=== PATIENT | female | born 1960 | race Caucasian/White ===

== ENCOUNTER 2020-03-01 03:31 | Inpatient (IN) | payer BC ==
[2020-03-01] VITALS (9 sets, daily range): BP systolic 107–122; BP diastolic 63–80
[~2020-03-01] VITALS: Ht 180.3 cm; Wt 103.4 kg
[2020-03-01] MEDS ORDERED: KETOROLAC TROMETHAMINE 30 MG/ML VIAL IV STA (03:33)
[2020-03-01] MEDS ORDERED: ONDANSETRON HCL INJ 2MG/ML 2ML 2 MG/ML VIAL IV STA (03:33)
--- NOTE | 2020-03-01 03:45 | Emergency Department Note ---
History of Present Illnes History of Present Illness Chief Complaint: Flank Pain History of Present Illness This is a 59 year old female PRESENTS TO THE ER C/O LT FLANK PAIN RADIATING TO LLQ WITH NAUSEA ONSET YESTERDAY AROUND 1500; PT STATES PAIN RESIDED AND BEGAN EXPERIENCING PAIN THIS AM; PT ALSO REPORTS BURNING WITH URINATION AND HEMATURIA; PT DENIES FEVER/CHILL, VOMITTING OR DIARRHEA; LT CVA TENDERNESS NOTED; PT APPEARS UNCOMFORTABLE; . PT IS ASKING FOR MORPHINE BY NAME IN TRIAGE. Historian: Patient Arrival Mode: Car Intelligence Operations Required: No Onset (how long ago): hour(s) (12) Location: LEFT FLANK Quality: PAIN Radiation: Reports abdomen (LLQ) Severity: moderate Onset quality: sudden Duration (how long): hour(s) (12) Timing of current episode: intermittent Progression: worsening Chronicity: new Context: Denies recent illness, Denies recent surgery, Denies trauma/injury Relieving factors: none Exacerbating factors: none Associated symptoms: Reports other (DYSURIA, BLOOD IN URINE) Past Medical/Family History Physician Review I have reviewed the patient's past medical and family history. Any updates have been documented here. 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 Social History Smoking Cessation: Never Smoker Alcohol Use: None Any Illegal Drug Use: No Family History Family history of heart diseas: No Review of Systems Review of Systems Constitutional: Reports no symptoms EENTM: Reports no symptoms Cardiovascular: Reports no symptoms Respiratory: Reports no symptoms Gastrointestinal: Reports no symptoms Genitourinary: Reports as per HPI Musculoskeletal: Reports no symptoms Integumentary: Reports no symptoms Neurological: Reports no symptoms Psychological: Reports no symptoms Endocrine: Reports no symptoms Hematological/Lymphatic: Reports no symptoms Physical Exam Related Data Allergies: Coded Allergies: No Known Allergies (Unverified , 03/01/20) Triage Vital Signs Vital Signs Date Time Temp Pulse Resp B/P (MAP) Pulse Ox O2 Delivery O2 Flow Rate FiO2 03/01/20 03:33 97.9 76 20 180/99 100 Room Air Vital signs reviewed: Yes Physical Exam CONSTITUTIONAL Constitutional: Present well-developed, Present well-nourished, Present distressed (MODERATE) HENT HENT: Present normocephalic, Present atraumatic, Present oropharynx clear/moist, Present nose normal HENT L/R: Present left ext ear normal, Present right ext ear normal EYES Eyes: Reports PERRL, Reports conjunctivae normal NECK Neck: Present ROM normal PULMONARY Pulmonary: Present effort normal, Present breath sounds normal CARDIOVASCULAR Cardiovascular: Present regular rhythm, Present heart sounds normal, Present capillary refill normal, Present normal rate GASTROINTESTINAL Abdominal: Present soft, Present nontender, Present bowel sounds normal, Present left CVA tenderness (MODERATE) GENITOURINARY Genitourinary: Present exam deferred SKIN Skin: Present warm, Present dry MUSCULOSKELETAL Musculoskeletal: Present ROM normal NEUROLOGICAL Neurological: Present alert, Present oriented x 3, Present no gross motor or sensory deficits PSYCHOLOGICAL Psychological: Present mood/affect normal, Present judgement normal Results Laboratory Laboratory Laboratory Tests Test 03/01/20 03:37 White Blood Count 7.09 x10e3/uL (4.8-10.8) Red Blood Count 4.35 x10e6/uL (3.6-5.1) Hemoglobin 12.1 g/dL (12.0-16.0) Hematocrit 37.8 % (34.2-44.1) Mean Corpuscular Volume 86.9 fL (81-99) Mean Corpuscular Hemoglobin 27.8 pg (28-32) Mean Corpuscular Hemoglobin Concent 32.0 g/dL (31-35) Red Cell Distribution Width 13.7 % (11.7-14.4) Platelet Count 292 x10e3/uL (140-360) Neutrophils (%) (Auto) 57.8 % (38.7-80.0) Lymphocytes (%) (Auto) 30.2 % (18.0-39.1) Monocytes (%) (Auto) 7.9 % (4.4-11.3) Eosinophils (%) (Auto) 3.1 % (0.0-6.0) Basophils (%) (Auto) 0.7 % (0.0-1.0) Neutrophils # (Auto) 4.1 (2.1-6.9) Lymphocytes # (Auto) 2.1 (1.0-3.2) Monocytes # (Auto) 0.6 (0.2-0.8) Eosinophils # (Auto) 0.2 (0.0-0.4) Basophils # (Auto) 0.1 (0.0-0.1) Absolute Immature Granulocyte (auto 0.02 x10e3/uL (0-0.1) Urine Color Yellow (YELLOW) Urine Clarity Sl cloudy (CLEAR) Urine pH 5.5 (5 - 7) Urine Specific [place] 1.030 (1.010-1.025) Urine Protein Negative (NEGATIVE) Urine Glucose (UA) Negative (NEGATIVE) Urine Ketones Negative (NEGATIVE) Urine Blood Large (NEGATIVE) Urine Nitrite Negative (NEGATIVE) Urine Bilirubin Negative (NEGATIVE) Urine Urobilinogen 0.2 mg/dL (0.2 - 1) Urine Leukocyte Esterase Trace (NEGATIVE) Urine RBC 11-20 /HPF (0-5) Urine WBC 6-10 /HPF (0-5) Urine Epithelial Cells Few /LPF (NONE) Urine Bacteria Moderate /HPF (NONE) Urine Mucus Few (RARE) Sodium Level 142 mmol/L (136-145) Potassium Level 4.1 mmol/L (3.5-5.1) Chloride Level 108 mmol/L (98-107) Carbon Dioxide Level 24 mmol/L (22-29) Anion Gap 14.1 mmol/L (8-16) Blood Urea Nitrogen 21 mg/dL (7-26) Creatinine 0.81 mg/dL (0.57-1.11) Estimat Glomerular Filtration Rate > 60 ML/MIN (60-) BUN/Creatinine Ratio 26 (6-25) Glucose Level 91 mg/dL (74-118) Calcium Level 9.7 mg/dL (8.4-10.2) Urine Opiates Screen Negative (NEGATIVE) Urine Methadone Screen Negative (NEGATIVE) Urine Barbiturates Screen Negative (NEGATIVE) Urine Phencyclidine Screen Negative (NEGATIVE) Urine Amphetamines Screen Negative (NEGATIVE) Urine Methamphetamines Screen Negative (NEGATIVE) Urine Benzodiazepines Screen Negative (NEGATIVE) Urine Cocaine Screen Negative (NEGATIVE) Urine Cannabinoids Screen Negative (NEGATIVE) Lab results reviewed: Yes Imaging Imaging results reviewed: Yes Impressions Procedure: [id number] CT/CT ABDOMEN/PELVIS WO Exam Date: 03/01/20 Exam Time: 0425 REPORT STATUS: Signed EXAM: CT Abdomen and Pelvis WITHOUT contrast INDICATION: Left flank pain COMPARISON: None. TECHNIQUE: Abdomen and pelvis were scanned utilizing a multidetector helical scanner from the lung base to the pubic symphysis without administration of IV contrast. Absence of intravenous contrast decreases sensitivity for detection of focal lesions and vascular pathology. Coronal and sagittal reformations were obtained. Routine protocol was performed. IV CONTRAST: None ORAL CONTRAST: None COMPLICATIONS: None RADIATION DOSE: Total DLP: 771 mGy*cm Estimated effective dose: (DLP x 0.015 x size factor) mSv CTDIvol has been reviewed. It is below the limits set by the Radiation Protocol Committee (RPC). Dose modulation, iterative reconstruction, and/or weight based adjustment of the mA/kV was utilized to reduce the radiation dose to as low as reasonably achievable. FINDINGS: LINES and TUBES: None. LOWER THORAX: Unremarkable HEPATOBILIARY: Enlarged hypodense liver. No focal hepatic lesions. No biliary ductal dilation. GALLBLADDER: No radio-opaque stones or sludge. No wall thickening. SPLEEN: No splenomegaly. PANCREAS: No focal masses or ductal dilatation. ADRENALS: No adrenal nodules KIDNEYS/URETERS: A 3 mm obstructive calculus at the left vesicoureteral junction with minimal upstream left hydroureteronephrosis. No cystic or solid mass lesions. GI TRACT: No abnormal distention, wall thickening, or evidence of bowel obstruction. Intact postsurgical changes of gastric bypass. Appendix is normal. PELVIC ORGANS/BLADDER: Hysterectomy. No adnexal masses. Multiple bilateral pelvic phleboliths calcifications about the vaginal cuff.. LYMPH NODES: No lymphadenopathy. VESSELS: Unremarkable. PERITONEUM / RETROPERITONEUM: No free air or fluid. BONES: There are degenerative changes in the spine. SOFT TISSUES: Multiple small ventral midline fat containing incisional hernias. IMPRESSION: A 3 mm obstructive calculus at the left vesicoureteral junction with minimal upstream left hydroureteronephrosis. Hepatomegaly with hepatic steatosis. Signed by: Raj Tarango DO on 03/01/2020 4:49 AM Dictated By: RAJ TARANGO DO 8 Transcribed By: MASON on 03/01/20448 COPY TO: ANASTASIA CHAUDHARI MD~ Assessment & Plan Medical Decision Making MDM PT WITH LEFT FLANK PAIN AND URINARY SYMPTOMS CBC, BMP, UA, CT ABD/PELVIS ORDERED TO EVAL FOR UTI, HEMATURIA, KIDNEY STONE TORADOL 30 MG IV ORDERED ZOFRAN 4 MG IV ORDERED I SPOKE WITH DR COOK AND DR LEONARD, PLACE PT IN OBS, KEEP NPO Assessment & Plan Final Impression: (1) Ureterolithiasis (2) Intractable pain (3) UTI (urinary tract infection) Depart Disposition: ADMITTED Last Vital Signs Date Time Temp Pulse Resp B/P (MAP) Pulse Ox O2 Delivery O2 Flow Rate FiO2 03/01/20 03:33 97.9 76 20 180/99 100 Room Air Medications in the ED Ondansetron HCl 4 mg NOW STAT IV ; Start 03/01/20 at 03:33; Stop 03/01/20 at 03:39; Status DC Ketorolac Tromethamine 30 mg ONCE STAT IV ; Start 03/01/20 at 03:33; Stop 03/01/20 at 03:39; Status DC ANASTASIA CHAUDHARI MD Mar 01, 2020 03:45
[2020-03-01 03:53] LABS: BASOPHILS # (AUTO) 0.1 (0.0-0.1); BASOPHILS % 0.7 % (0.0-1.0); EOSINOPHILS # (AUTO) 0.2 (0.0-0.4); EOSINOPHILS % 3.1 % (0.0-6.0); HEMATOCRIT 37.8 % (34.2-44.1); HEMOGLOBIN 12.1 g/dL (12.0-16.0); LYMPHOCYTES # (AUTO) 2.1 (1.0-3.2); LYMPHOCYTES % 30.2 % (18.0-39.1); MEAN CORPUSCULAR HEMOGLOBIN 27.8 pg (28-32); MEAN CORPUSCULAR VOLUME 86.9 fL (81-99); MONOCYTES # (AUTO) 0.6 (0.2-0.8); MONOCYTES % 7.9 % (4.4-11.3); NEUTROPHILS # (AUTO) 4.1 (2.1-6.9); NEUTROPHILS % 57.8 % (38.7-80.0); PLATELET COUNT 292 x10e3/uL (140-360); RED BLOOD COUNT 4.35 x10e6/uL (3.6-5.1); RED CELL DISTRIBUTION WIDTH 13.7 % (11.7-14.4)
[2020-03-01 03:54] LABS: BILIRUBIN,URINE NEGATIVE (NEGATIVE); CLARITY,URINE SL CLOUDY (CLEAR); COLOR,URINE YELLOW (YELLOW); KETONES,URINE NEGATIVE (NEGATIVE); LEUKOCYTE ESTERASE ,URINE TRACE (NEGATIVE); NITRITE,URINE NEGATIVE (NEGATIVE); PROTEIN,URINE DIPSTICK NEGATIVE (NEGATIVE); URINE UROBILINOGEN 0.2 mg/dL (0.2 - 1)
[2020-03-01 04:03] LABS: BACTERIA,URINE MODERATE /HPF; EPITHELIAL CELLS,URINE FEW /LPF; MUCUS,URINE FEW (RARE)
[2020-03-01 04:06] LABS: ANION GAP 14.1 mmol/L (8-16); BLOOD UREA NITROGEN 21 mg/dL (7-26); BUN/CREATININE RATIO 26 (6-25); CALCIUM 9.7 mg/dL (8.4-10.2); CARBON DIOXIDE 24 mmol/L (22-29); CHLORIDE 108 mmol/L (98-107); CREATININE, SERUM 0.81 mg/dL (0.57-1.11); EST GLOMERULAR FILTRATION RATE > 60 ML/MIN (60-); GLUCOSE 91 mg/dL (74-118); POTASSIUM 4.1 mmol/L (3.5-5.1); SODIUM 142 mmol/L (136-145)
[2020-03-01 04:23] LABS: AMPHETAMINES SCREEN,URINE NEGATIVE (NEGATIVE); BENZODIAZEPINES SCREEN,URINE NEGATIVE (NEGATIVE); PHENCYCLIDINE SCREEN,URINE NEGATIVE (NEGATIVE)
[2020-03-01] MEDS ORDERED: HYDROMORPHONE 1MG/1ML INJ IV STA (04:42)
[2020-03-01] MEDS ORDERED: CEFTRIAXONE SOD 1 GM/NS 50 ML 50 ML IV ONE (04:45)
[2020-03-01] MEDS ORDERED: HYDROMORPHONE 1MG/1ML INJ ONE (04:52)
--- NOTE | 2020-03-01 04:53 | Diagnostic Imaging Report ---
EXAM: CT Abdomen and Pelvis WITHOUT contrast INDICATION: Left flank pain COMPARISON: None. TECHNIQUE: Abdomen and pelvis were scanned utilizing a multidetector helical scanner from the lung base to the pubic symphysis without administration of IV contrast. Absence of intravenous contrast decreases sensitivity for detection of focal lesions and vascular pathology. Coronal and sagittal reformations were obtained. Routine protocol was performed. IV CONTRAST: None ORAL CONTRAST: None COMPLICATIONS: None RADIATION DOSE: Total DLP: 771 mGy*cm Estimated effective dose: (DLP x 0.015 x size factor) mSv CTDIvol has been reviewed. It is below the limits set by the Radiation Protocol Committee (RPC). Dose modulation, iterative reconstruction, and/or weight based adjustment of the mA/kV was utilized to reduce the radiation dose to as low as reasonably achievable. FINDINGS: LINES and TUBES: None. LOWER THORAX: Unremarkable HEPATOBILIARY: Enlarged hypodense liver. No focal hepatic lesions. No biliary ductal dilation. GALLBLADDER: No radio-opaque stones or sludge. No wall thickening. SPLEEN: No splenomegaly. PANCREAS: No focal masses or ductal dilatation. ADRENALS: No adrenal nodules KIDNEYS/URETERS: A 3 mm obstructive calculus at the left vesicoureteral junction with minimal upstream left hydroureteronephrosis. No cystic or solid mass lesions. GI TRACT: No abnormal distention, wall thickening, or evidence of bowel obstruction. Intact postsurgical changes of gastric bypass. Appendix is normal. PELVIC ORGANS/BLADDER: Hysterectomy. No adnexal masses. Multiple bilateral pelvic phleboliths calcifications about the vaginal cuff.. LYMPH NODES: No lymphadenopathy. VESSELS: Unremarkable. PERITONEUM / RETROPERITONEUM: No free air or fluid. BONES: There are degenerative changes in the spine. SOFT TISSUES: Multiple small ventral midline fat containing incisional hernias. IMPRESSION: A 3 mm obstructive calculus at the left vesicoureteral junction with minimal upstream left hydroureteronephrosis. Hepatomegaly with hepatic steatosis. Signed by: Charlie Tarango DO on 03/01/2020 4:49 AM
--- OUTSIDE RECORDS SUMMARY | 2020-03-01 05:04 | XMS REPORT | Continuity of Care Document ---
Author Author [facility] t Organization [facility] Address [address] [place] [address] Phone Unavailable Care Team Providers Care Swimming Pool Serviceperson Name Role Phone NICO LY MD PCP Ashley CHAUDHARI Attphyog Unavailable Joie MCCULLOUGH Attphys Unavailable Payers Payer Name Policy Type Policy Number Effective Date Expiration Date S josse [facility] [id number] 2014 00:00:00 [facility] Problems This patient has no known problems. Allergies, Adverse Reactions, Alerts This patient has no known allergies or adverse reactions. Medications This patient has no known medications. Procedures This patient has no known procedures. Encounters Start Date/Time End Date/Time [facility] ID Source 2019-09-02 11:17:00 2019-09-02 15:22:00 Departed Emergency Room 1 RAMILA MCCULLOUGH [facility] [id number] [facility] Results Test Description Test Time Test Comments Results Result Comments Source CT ABDOMEN/PELVIS WO 2020-03-01 04:39:00 [facility] [address] [place], [place] [address] Patient Name: RAYNA DOLAN MR #: [id number] : 1960 Age/Sex: 59/F Req #: [id number] Adm Physician: Ordered by: ANASTASIA CHAUDHARI MD Report #: [id number] Location: ER Room/Bed: Procedure: [id number] CT/CT ABDOMEN/PELVIS WO Exam Date: 03/01/20 Exam Time: 0425 REPORT STATUS: Signed EXAM: CT Abdomen and Pelvis WITHOUT contrast INDICATION: Left flank pain COMPARISON: None. TECHNIQUE: Abdomen and pelvis were scanned utilizing a multidetector helical scanner from the lung base to the pubic symphysis without administration of IV contrast. Absence of intravenous contrast decreases sensitivity for detection of focal lesions and vascular pathology. Coronal and sagittal reformations were obtained. Routine protocol was performed. IV CONTRAST: None ORAL CONTRAST: None COMPLICATIONS: None RADIATION DOSE: Total DLP: 771 mGy*cm Estimated effective dose: (DLP x 0.015 x size factor) mSv CTDIvol has been reviewed. It is below the limits set by the Radiation Protocol Committee (RPC). Dose modulation, iterative reconstruction, and/or weight based adjustment of the mA/kV was utilized to reduce the radiation dose to as low as reasonably achievable. FINDINGS: LINES and TUBES: None. LOWER THORAX: Unremarkable HEPATOBILIARY: Enlarged hypodense liver. No focal hepatic lesions. No biliary ductal dilation. GALLBLADDER: No radio-opaque stones or sludge. No wall thickening. SPLEEN: No splenomegaly. PANCREAS: No focal masses or ductal dilatation. ADRENALS: No adrenal nodules KIDNEYS/URETERS: A 3 mm obstructive calculus at the left vesicoureteral junction with minimal upstream left hydroureteronephrosis. No cystic or solid mass lesions. GI TRACT: No abnormal distention, wall thickening, or evidence of bowel obstruction. Intact postsurgical changes of gastric bypass. Appendix is n ormal. PELVIC ORGANS/BLADDER: Hysterectomy. No adnexal masses. Multiple bilateral pelvic phleboliths calcifications about the vaginal cuff.. LYMPH NODES: No lymphadenopathy. VESSELS: Unremarkable. PERITONEUM / RETROPERITONEUM: No free air or fluid. BONES: There are degenerative changes in the spine. SOFT TISSUES: Multiple small ventral midline fat containing incisional hernias. IMPRESSION: A 3 mm obstructive calculus at the left vesicoureteral junction with minimal upstream left hydroureteronephrosis. Hepatomegaly with hepatic steatosis. Signed by: Charlie Tarango DO on 03/01/2020 4:49 AM Dictated By: CHARLIE TARANGO DO 8 Transcribed By: MASON on 03/01/20448 COPY TO: ANASTASIA CHAUDHARI MD Blood Culture 2019-09-05 11:59:00 Test Item Blood Culture (test code = 40696989) NO GROWTH AFTER [address] [address]2019-09-05 05:17:00* Test Item Value Reference Range Interpretation Comments Coronavirus (PCR) (test code = Coronavirus (PCR)) NOT DETECTED NOTD ETECTED SARS-COV-2 (COVID19), HIGHRISK, RT-PCRNegative results do not preclude SARS-CoV- 2 infection and should not be used as the sole basis for patient management deci sions. Negative results must be combined with clinical observations, patient his tory, and epidemiological information. Optimum specimen types and timing for pea k viral levels during infections caused by SARS-CoV-2 have not been determined. Collection of multiple specimens ot types of specimens may be necessary to detec t virus. Improper specimen collection and handling, sequence variability under p rimers/probes, or organism present below the limit of detection may lead to fals e negative results. Positive and negative predictive values of testing are highl y dependent on prevalance. False negative test results are more likely when prev alence is high.The expected result is negative (not detected).The SARS-CoV-2 robby t is intended for the qualitative detection of nucleic acid from SARS-CoV-2 in n asopharyngeal and oropharyngeal swab samples from patients who meet COVID-19 cli nical and or epidemiological criteria. For lower respiratory tract specimens, th e assay is submitted for authoriztion by FDA under an Emergency Use Authorizatio n (EUA). Testing methodology is real time RT-PCR. If received as separate collec tion devices, nasopharygeal and oropharyngeal specimens are combined for analysi s. Additional specimens may be split to a separate accession for analysi and rep orting as this test includes a single unit of service.Test results must be corre lated with clinical presentation and evaluated in the context of other laborator y and epidemiologic data. Test performance can be affected because the epidemiol ogy and clinical spectrum of infection caused by SARS-CoV-2 is not fully known. For example, the optimum types of specimens to collect and when during the cours e of infection these specimens are most likely to contain detectable viral RNA m ay not be known.This test has not been Food and Drug Administration (FDA) cleare d or approved and has been authorized by FDA under an Emergency Use Authorizatio n (EUA). The test is only authorized for the duration of the declaration that ci rcumstances exist justifying the authorization of emergency use of in vitro diag nostic tests for detection and/or diagnosis of SARS-CoV-2 under section 564(b) o f the Act, 21 U.S.C. section 360bbb-3(b)(1), unless the authorization is termina vicki or revoked sooner. [facility] are certified under the C linical Laboratory Improvement Amendments of 1988 (CLIA), 42 U.S.C. section 263a , to perform high complexity tests.Specimen sent to [facility] and testing performed by [facility] [address] [place] [address] [phone] Director: Josh Prince M.D.CLIA # [id number] Medical CenterChlamydia pneumoniae DNA (PCR) 2019-09-03 06:45:00* Test Item Value Reference Range Interpretation Comments Chlamydia pneumoniae DNA (PCR) (test code = Chlamydia pneumoniae DNA (PCR)) NOT DETECTED NOT DETECT [facility] CenterInfluenza Type A (RT-PCR)2019-09-03 06:45:00* Test Item Value Reference Range Interpretation Comments Influenza Type A (RT-PCR) (test code = 909331388) NOT DETECTED NOT DETECT [facility] CenterMycoplasma pneumoniae (PCR)2019-09-03 06:45:00* Test Item Value Reference Range Interpretation Comments Mycoplasma pneumoniae (PCR) (test code = Mycoplasma pn eumoniae (PCR)) NOT DETECTED NOT DETECT [facility] CenterInfluenza Type B (RT-PCR)2019-09-03 06:45:00* Test Item Value Reference Range Interpretation Comments Influenza Type B (RT-PCR) (test code = 138776677) NOT DETECTED NOT DETECT [facility] CenterRespiratory Syncytial Virus (PCR) 2019-09-03 06:45:00* Test Item Value Reference Range Interpretation Comments Respiratory Syncytial Virus (PCR) (test code = 936054519) NO T DETECTED NOT DETECT [facility] CenterBordetella pertussis DNA (PCR)2019-09-03 06:45:00* Test Item Value Reference Range Interpretation Comments Bordetella pertussis DNA (PCR) (test code = 977920436) NOT DETEC VICKI NOT DETECT [facility] CenterParainfluenza Type 1 (PCR)2019-09-03 06:45:00* Test Item Value Reference Range Interpretation Comments Parainfluenza Type 1 (PCR) (test code = 860778539) NOT DETECTED NOT DETECT [facility] 2 (PCR)2019-09-03 06:45:00* Test Item Value Reference Range Interpretation Comments Parainfluenza Type 2 (PCR) (test code = 792697786) NOT DETECTED NOT DETECT [facility] CenterParainfluenza Type 3 (PCR)2019-09-03 06:45:00* Test Item Value Reference Range Interpretation Comments Parainfluenza Type 3 (PCR) (test code = 058520844) NOT DETECTED NOT DETECT [facility] CenterParainfluenza Type 4 (PCR)2019-09-03 06:45:00* Test Item Value Reference Range Interpretation Comments Parainfluenza Type 4 (PCR) (test code = Parainfluenza Type 4 (PCR)) NOT DETECTED NOT DETECT [facility] CenterRhinovirus (PCR)2019-09-03 06:45:00* Test Item Value Reference Range Interpretation Comments Rhinovirus (PCR) (test code = 395572073) NOT DETECTED NOT DETECT [facility] CenterHuman Metapneumovirus (PCR)2019-09-03 06:45:00* Test Item Value Reference Range Interpretation Comments Human Metapneumovirus (PCR) (test code = 880571115) DETECTED NO T DETECT Contact isolation- consider stopping antibioticsCH[facility]. [facility] CenterAdenovirus (PCR)2019-09-03 06:45:00* Test Item Value Reference Range Interpretation Comments Adenovirus (PCR) (test code = 490578490) NOT DETECTED NOT DETECT [facility] CenterCoronavirus Type HKU1 (PCR)2019-09-03 06:45:00* Test Item Value Reference Range Interpretation Comments Coronavirus Type HKU1 (PCR) (test code = Coronavirus T ype HKU1 (PCR)) NOT DETECTED NOT DETECT [facility] CenterCoronavirus Type NL63 (PCR)2019-09-03 06:45:00* Test Item Value Reference Range Interpretation Comments Coronavirus Type NL63 (PCR) (test code = Coronavirus T ype NL63 (PCR)) NOT DETECTED NOT DETECT [facility] CenterCoronavirus Type OC43 (PCR)2019-09-03 06:45:00* Test Item Value Reference Range Interpretation Comments Coronavirus Type OC43 (PCR) (test code = Coronavirus T ype OC43 (PCR)) NOT DETECTED NOT DETECT [facility] CenterCoronavirus Type 229E (PCR)2019-09-03 06:45:00* Test Item Value Reference Range Interpretation Comments Coronavirus Type 229E (PCR) (test code = Coronavirus T ype 229E (PCR)) NOT DETECTED NOT DETECT Other viruses and bacteria not targeted by this PCR panel cannot be excluded; th erefore clinical correlation and follow up of serology, culture results, and ot er molecular studies is required. The results are not intended to be used as the sole means for clinical diagnosis or patient management decisions. This sample was tested at [facility] using the [employer] Respiratory Panel. It is FDA cleared and has been verified and approved by [facility] for clinical use on nasopharyngeal swa b specimens.ALL RESPIRATORY VIRAL PANEL Testing performed at [address] [address]KJHRLRH HAVE BEEN CALLED TO THE [facility] CenterCHEST SINGLE (PORTABLE)2019-09-02 14:45:00 [place] [address] Patient Name: RAYNA ARCOS MR #: [id number] : 1960 Age/Sex: 59/F Req #: [id number] Adm Physician: Ordered by: RAMILA MCCULLOUGH MD Report #: [id number] Location: ER Room/Bed: Procedure: [id number] DX/ CHEST SINGLE (PORTABLE) Exam Date: 09/02/19 Exam Reji e: 1350 REPORT STATUS: Signed EX AMINATION: CHEST SINGLE (PORTABLE) INDICATION: Cough COMPARISON: None FINDINGS: LINES/TUBES:EKG leads overlie the chest. LUNG S:The lungs are well-inflated. No focal consolidation or pulmonary edema. P LEURA:No pleural effusion or pneumothorax. MEDIASTINUM:The cardiomediastina l silhouette appears normal in size and shape. BONES/SOFT TISSUES:No acute osseous injury. ABDOMEN:No free air under the diaphragm. IMPRESSION : No focal pneumonia or pulmonary edema. Signed by: Jhonny Steiner MD on 09/02/2019 2:46 PM Dictated By: JHONNY STEINER MD 1446 Transcribed By: MASON on 09/02/19 1446 COPY TO: RAMILA MCCULLOUGH MD Urine [id number] 13:12:00* Test Item Value Reference Range Interpretation Comments Urine WBC (test code = 5821-4) 0-5 0-5 [facility] CenterUrine PAG1143-54-47 13:12:00* Test Item Value Reference Range Interpretation Comments Urine RBC (test code = 52445-0) 0-5 0-5 [facility] CenterUrine Uqwohayk4129-47-13 13:12:00* Test Item Value Reference Range Interpretation Comments Urine Bacteria (test code = 25339-2) FEW NONE [facility] CenterUrine Epithelial Giaek7466-08-00 13:12:00 * Test Item Value Reference Range Interpretation Comments Urine Epithelial Cells (test code = 43794-9) FEW NONE [facility] CenterInfluenza Virus Types A,B Antigen 2019-09-02 12:41:00* Test Item Value Reference Range Interpretation Comments Influenza Virus Types A,B Antigen (test code = 30547-5) NEGATIVE NEGATIVE [facility] CenterUrine Hunpt4507-51-15 12:39:00* Test Item Value Reference Range Interpretation Comments Urine Color (test code = 5778-6) YELLOW YELLOW [facility] CenterUrine Kmypnpo8214-90-65 12:39:00* Test Item Value Reference Range Interpretation Comments Urine Clarity (test code = 97169-7) SL CLOUDY CLEAR [facility] CenterUrine Specific Smrnjtu3263-75-19 12:39:00 * Test Item Value Reference Range Interpretation Comments Urine Specific Howard (test code = 5811-5) >=1.030 1.010-1.02 5 [facility] CenterUrine eN2098-02-94 12:39:00* Test Item Value Reference Range Interpretation Comments Urine pH (test code = 41941-8) 6 5-7 [facility] CenterUrine Leukocyte Xfhhmgkx9125-54-26 12:39:00* Test Item Value Reference Range Interpretation Comments Urine Leukocyte Esterase (test code = 5799-2) NEGATIVE NEGATIVE [facility] CenterUrine Lhafejo6536-90-05 12:39:00* Test Item Value Reference Range Interpretation Comments Urine Nitrite (test code = 30884-4) NEGATIVE NEGATIVE [facility] CenterUrine Pnvsxtv2907-02-41 12:39:00* Test Item Value Reference Range Interpretation Comments Urine Protein (test code = 5804-0) NEGATIVE NEGATIVE [facility] CenterUrine Glucose (UA)2019-09-02 12:39:00* Test Item Value Reference Range Interpretation Comments Urine Glucose (UA) (test code = 2349-9) NEGATIVE NEGATIVE [facility] CenterUrine Yvwdptx7397-60-93 12:39:00* Test Item Value Reference Range Interpretation Comments Urine Ketones (test code = 57585-0) NEGATIVE NEGATIVE [facility] CenterUrine Vbzldteaqamm9035-34-43 12:39:00* Test Item Value Reference Range Interpretation Comments Urine Urobilinogen (test code = 86030-1) 0.2 0.2-1 [facility] CenterUrine Mjqvpnfcs9051-57-46 12:39:00* Test Item Value Reference Range Interpretation Comments Urine Bilirubin (test code = 1978-6) NEGATIVE NEGATIVE [facility] CenterUrine Cpmmq5933-73-94 12:39:00* Test Item Value Reference Range Interpretation Comments Urine Blood (test code = 81592-2) NEGATIVE NEGATIVE [facility] CenterCreatine Kinase TJ5313-90-50 12:36:00* Test Item Value Reference Range Interpretation Comments Creatine Kinase MB (test code = 13886-2) 2.30 0-5.0 [facility] CenterTroponin E0691-99-43 12:36:00* Test Item Value Reference Range Interpretation Comments Troponin I (test code = 61232-9) 0.001 0-0.300 [facility] CenterGroup A Streptococcus Adfnus9919-16-04 12:34:00* Test Item Value Reference Range Interpretation Comments Group A Streptococcus Screen (test code = 44197-5) POSITIVE NEG ATIVE Results called to GERARDO GARCIA at 1233 on 09/02/19 by Kiki Marinelli. RB [place]. [facility] [facility] Centerodium Fcoih1292-40-14 12:29:00* Test Item Value Reference Range Interpretation Comments Sodium Level (test code = 2951-2) 139 136-145 [facility] CenterPotassium Uplcc0689-84-88 12:29:00* Test Item Value Reference Range Interpretation Comments Potassium Level (test code = 2823-3) 4.0 3.5-5.1 [facility] CenterChloride Vzcmy8209-23-66 12:29:00* Test Item Value Reference Range Interpretation Comments Chloride Level (test code = 2075-0) 104 98-107 [facility] CenterCarbon Dioxide Utxkv4459-50-72 12:29:00* Test Item Value Reference Range Interpretation Comments Carbon Dioxide Level (test code = 2028-9) 25 22-29 [facility] CenterAnion Ihx9376-86-44 12:29:00* Test Item Value Reference Range Interpretation Comments Anion Gap (test code = 53501-4) 14.0 8-16 [facility] CenterBlood Urea Rxmmglzm8508-54-29 12:29:00* Test Item Value Reference Range Interpretation Comments Blood Urea Nitrogen (test code = 3094-0) 13 7-26 [facility] CenterCreatinine2020-04-03 12:29:00* Test Item Value Reference Range Interpretation Comments Creatinine (test code = 2160-0) 0.83 0.57-1.11 [facility] CenterBUN/Creatinine Yxcvu1160-58-02 12:29:00* Test Item Value Reference Range Interpretation Comments BUN/Creatinine Ratio (test code = 3097-3) 16 6-25 [facility] CenterEstimat Glomerular Filtration Rate 2019-09-02 12:29:00* Test Item Value Reference Range Interpretation Comments Estimat Glomerular Filtration Rate (test code = 874747046) > 60 >60 Ranges were taken from the National Kidney Disease Education Program and the [facility] Kidney Foundation literature.Reference ranges:60 or greater: Javggt61-77 ( for 3 consecutive months): Chronic kidney disease 15 or less: Kidney failureLaredo Medical CenterGlucose Wjtah5287-09-15 12:29:00* Test Item Value Reference Range Interpretation Comments Glucose Level (test code = SAA1843) 103 74-118 [facility] CenterCalcium Xxyxp3713-60-50 12:29:00* Test Item Value Reference Range Interpretation Comments Calcium Level (test code = 47154-5) 9.2 8.4-10.2 [facility] CenterTotal Sxgptibjg7024-02-15 12:29:00* Test Item Value Reference Range Interpretation Comments Total Bilirubin (test code = 1975-2) 0.5 0.2-1.2 [facility] CenterAspartate Amino Transf (AST/SGOT) 2019-09-02 12:29:00* Test Item Value Reference Range Interpretation Comments Aspartate Amino Transf (AST/SGOT) (test code = Aspartate Amino Transf (AST/SGOT)) 19 5-34 [facility] CenterAlanine Aminotransferase (ALT/SGPT) 2019-09-02 12:29:00* Test Item Value Reference Range Interpretation Comments Alanine Aminotransferase (ALT/SGPT) (test code = 1742-6) 37 0-55 [facility] CenterTotal Hhcgmdi2819-19-87 12:29:00* Test Item Value Reference Range Interpretation Comments Total Protein (test code = 2885-2) 7.4 6.5-8.1 [facility] CenterAlbumin2020-04-03 12:29:00* Test Item Value Reference Range Interpretation Comments Albumin (test code = 1751-7) 4.1 3.5-5.0 [facility] CenterGlobulin2020-04-03 12:29:00* Test Item Value Reference Range Interpretation Comments Globulin (test code = 31771-0) 3.3 2.3-3.5 [facility] CenterAlbumin/Globulin Wgdza8552-64-25 12:29:00 * Test Item Value Reference Range Interpretation Comments Albumin/Globulin Ratio (test code = 1759-0) 1.2 0.8-2.0 [facility] CenterAlkaline Otzbefkxemc6848-31-34 12:29:00* Test Item Value Reference Range Interpretation Comments Alkaline Phosphatase (test code = 6768-6) 77 40-150 [facility] CenterCreatine Vazluk3378-79-39 12:29:00* Test Item Value Reference Range Interpretation Comments Creatine Kinase (test code = 2157-6) 66 29-168 [facility] CenterActivated Partial Thromboplast Time 2019-09-02 12:20:00* Test Item Value Reference Range Interpretation Comments Activated Partial Thromboplast Time (test code = 12163-6) 25.1 23.8-35.5 [facility] CenterProthrombin Eorw6892-48-51 12:19:00* Test Item Value Reference Range Interpretation Comments Prothrombin Time (test code = 5902-2) 12.9 11.9-14.5 [facility] CenterProthromb Time International Ratio 2019-09-02 12:19:00* Test Item Value Reference Range Interpretation Comments Prothromb Time International Ratio (test code = 6301-6) 0.92 Oral Anticoagulant Therapy INR Values:1. Low Intensity Therapy 1.5 - 2.02 . Moderate Intensity Therapy 2.0 - 3.03. High Intensity Therapy(1) 2.5 - 3. 54. High Intensity Therapy(2) 3.0 - 4.05. Panic Value INR > 5.0 [facility] CenterWhite Blood Lixca3187-23-72 12:08:00* Test Item Value Reference Range Interpretation Comments White Blood Count (test code = 6690-2) 6.97 4.8-10.8 [facility] CenterRed Blood Kvowe1585-36-72 12:08:00* Test Item Value Reference Range Interpretation Comments Red Blood Count (test code = 789-8) 4.89 3.6-5.1 [facility] CenterHemoglobin2020-04-03 12:08:00* Test Item Value Reference Range Interpretation Comments Hemoglobin (test code = 66267-6) 14.0 12.0-16.0 [facility] CenterHematocrit2020-04-03 12:08:00* Test Item Value Reference Range Interpretation Comments Hematocrit (test code = 4544-3) 42.5 34.2-44.1 [facility] CenterMean Corpuscular Mypnwr8055-79-81 12:08:00* Test Item Value Reference Range Interpretation Comments Mean Corpuscular Volume (test code = 787-2) 86.9 81-99 [facility] CenterMean Corpuscular Udthizvwwt4585-55-57 12:08:00* Test Item Value Reference Range Interpretation Comments Mean Corpuscular Hemoglobin (test code = 785-6) 28.6 28-32 [facility] CenterMean Corpuscular Hemoglobin Concent 2019-09-02 12:08:00* Test Item Value Reference Range Interpretation Comments Mean Corpuscular Hemoglobin Concent (test code = 786-4) 32.9 31-35 [facility] CenterRed Cell Distribution Hulwb3403-62-58 12:08:00* Test Item Value Reference Range Interpretation Comments Red Cell Distribution Width (test code = 77772-0) 13.4 11.7 -14.4 [facility] CenterPlatelet Goxjn6841-16-55 12:08:00* Test Item Value Reference Range Interpretation Comments Platelet Count (test code = 777-3) 321 140-360 [facility] CenterNeutrophils (%) (Auto)2019-09-02 12:08:00 * Test Item Value Reference Range Interpretation Comments Neutrophils (%) (Auto) (test code = 58328-4) 56.9 38.7-80.0 [facility] CenterLymphocytes (%) (Auto)2019-09-02 12:08:00 * Test Item Value Reference Range Interpretation Comments Lymphocytes (%) (Auto) (test code = 736-9) 35.4 18.0-39.1 [facility] CenterMonocytes (%) (Auto)2019-09-02 12:08:00* Test Item Value Reference Range Interpretation Comments Monocytes (%) (Auto) (test code = 5905-5) 6.0 4.4-11.3 [facility] CenterEosinophils (%) (Auto)2019-09-02 12:08:00 * Test Item Value Reference Range Interpretation Comments Eosinophils (%) (Auto) (test code = 713-8) 0.7 0.0-6.0 [facility] CenterBasophils (%) (Auto)2019-09-02 12:08:00* Test Item Value Reference Range Interpretation Comments Basophils (%) (Auto) (test code = 706-2) 0.4 0.0-1.0 [facility] CenterIM GRANULOCYTES %2019-09-02 12:08:00* Test Item Value Reference Range Interpretation Comments IM GRANULOCYTES % (test code = IM GRANULOCYTES %) 0.6 0.0- 1.0 [facility] CenterNeutrophils # (Auto)2019-09-02 12:08:00* Test Item Value Reference Range Interpretation Comments Neutrophils # (Auto) (test code = 751-8) 4.0 2.1-6.9 [facility] CenterLymphocytes # (Auto)2019-09-02 12:08:00* Test Item Value Reference Range Interpretation Comments Lymphocytes # (Auto) (test code = 38013-8) 2.5 1.0-3.2 [facility] CenterMonocytes # (Auto)2019-09-02 12:08:00* Test Item Value Reference Range Interpretation Comments Monocytes # (Auto) (test code = 742-7) 0.4 0.2-0.8 [facility] CenterEosinophils # (Auto)2019-09-02 12:08:00* Test Item Value Reference Range Interpretation Comments Eosinophils # (Auto) (test code = 711-2) 0.1 0.0-0.4 [facility] CenterBasophils # (Auto)2019-09-02 12:08:00* Test Item Value Reference Range Interpretation Comments Basophils # (Auto) (test code = 704-7) 0.0 0.0-0.1 [facility] CenterAbsolute Immature Granulocyte (auto 2019-09-02 12:08:00* Test Item Value Reference Range Interpretation Comments Absolute Immature Granulocyte (auto (robby t code = Absolute Immature Granulocyte (auto) 0.04 0-0.1 [facility]
--- NOTE | 2020-03-01 05:30 | NUR ---
Patient arrived by stretcher. Notified patient need to strain urine; strainer placed in restroom. Patient alert and oriented; patient stable and states feeling comfortable at this time
[2020-03-01] MEDS: SODIUM CHLORIDE 0.9% 1000ML 1,000 ML IV SCH ×3 (05:50→19:47)
[2020-03-01] MEDS: ONDANSETRON HCL INJ 2MG/ML 2ML 2 MG/ML VIAL IV PRN ×5 (08:06→23:36)
[2020-03-01] MEDS: HYDROMORPHONE 1MG/1ML INJ IV PRN ×5 (08:06→23:36)
[2020-03-01] MEDS ORDERED: ACETAMINOPHEN 325 MG TAB PO PRN (09:00)
[2020-03-01] MEDS ORDERED: KETOROLAC TROMETHAMINE 30 MG/ML VIAL IV ONE (10:20)
--- NOTE | 2020-03-01 12:57 | Consultation ---
DATE OF CONSULTATION: 03/01/2020 Urology Consultation Consultation was called by the emergency room Dr. Pugh. CHIEF COMPLAINT/REASON FOR CONSULTATION: Kidney stones. 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 She denied gross hematuria. Denied dysuria. Denied fevers. No chills. Positive for nausea. Denied vomiting. PAST MEDICAL HISTORY: Denied. MEDICATIONS: Please see MAR. ALLERGIES: NKDA. SOCIAL HISTORY: No smoking or drinking. FAMILY HISTORY: Denied urologic stones or malignancies. REVIEW OF SYSTEMS: Noncontributory, other than problems mentioned above for 12 organ systems. PHYSICAL EXAMINATION: GENERAL: Middle-aged female, currently in no acute distress. VITAL SIGNS: Temperature is 97.8, pulse 62, respirations 18, and blood pressure 118/80. HEENT: Sclerae anicteric. NECK: Supple. BACK: Without costovertebral angle tenderness bilaterally. ABDOMEN: Soft, it is nontender. It is nondistended. There is no palpable mass, no palpable hernias, no palpable adenopathy. : Normal female external genitalia. EXTREMITIES: No edema. NEURO: Moves all four extremities. PSYCH: Alert, appropriate mood. SKIN: Intact, normal color. PERTINENT LABORATORY DATA: Sodium 142, potassium 4.1, chloride 108, bicarb 24, BUN 21, creatinine 0.81, and glucose 91. Hemoglobin 12, hematocrit 37, platelet count 282,000, and white blood cell count 7000. Urinalysis 11 to 20 reds, 6 to 10 whites, positive epithelial cells. CT scan showing a 3 mm left UVJ stone, mild left hydronephrosis, fatty liver. On admission, the patient had a blood pressure of 180/99. IMPRESSION: 1. Left ureteral calculus. 2. Left hydronephrosis. 3. Left renal colic. 4. Microscopic hematuria. 5. Question urinary tract infection. 6. Hypertension. 7. Obesity. PLAN: We will employ a trial passage with a 3 mm stone. The patient has over 70% chance of passage, should the patient fail this, we will take to the OR on Thursday. Thank you for allowing me to see your patient. We will be happy to follow along with you. MD MARY Velez/CLIFF /[id number]
--- NOTE | 2020-03-01 15:08 | History and Physical ---
HISTORY OF PRESENT ILLNESS: The patient is a 59-year-old female with no past medical history, came here with severe left lower quadrant pain. She was found to have kidney stone, started on IV fluids, IV pain medication, which is Dilaudid and IV antibiotics. REVIEW OF SYSTEMS: CARDIOVASCULAR: No chest pain or palpitation. RESPIRATORY: No shortness of breath. No cough. GASTROINTESTINAL: She has nausea, but no vomiting. No diarrhea. GENITOURINARY: She has left flank and left lower quadrant abdominal pain, difficulty urinating also. ALLERGIES: NOT ALLERGIC TO ANYTHING. PAST MEDICAL HISTORY: Negative for any significant medical condition. SOCIAL HISTORY: She does not smoke. She does not drink. PHYSICAL EXAMINATION: HEART: Showed regular rhythm. Normal S1 and S2 sound. LUNGS: Clear bilaterally. ABDOMEN: Soft. Mild tenderness on the left lower quadrant. EXTREMITIES: Show no edema. VITAL SIGNS: Blood pressure 113/69, temperature 97.7, heart rate 63 per minute, respiratory rate 17 per minute, and oxygen saturation 99%. LABORATORY DATA: On the CBC show white blood count 7.9, 10.09, hemoglobin 12.1, hematocrit 37.8, and platelet count 292,000. On the BMP; sodium 142, potassium 4.1, chloride 108, CO2 24, BUN 21, creatinine 0.1, and glucose 91. Urinalysis show trace leukocyte, red blood cells, white blood cells, moderate bacteria, few mucus. Toxicology is negative. Serology, we have COVID-19 test, which is pending. CT of the abdomen and pelvis has been done and it show in the final impression of 3 mm obstructive calculus of the left vesicoureteral junction with minimal upstream, left hydronephrosis, hepatomegaly with hepatic steatosis. FINAL IMPRESSION: 1. Left ureteral kidney stone with hydronephrosis. 2. Urinary tract infection. 3. Hepatic steatosis. PLAN OF TREATMENT: Continue current IV fluids with normal saline 125 mL an hour and ceftriaxone 1 g IV once a day. Continue Dilaudid 1 mg IV every 3 hours as needed for pain, Zofran 4 mg IV every 4 hours as needed, Tylenol 650 mg every 4 hours as needed for mild pain or fever. Also, we have a consult with Dr. Chawla for Urology. The patient will get another KUB tomorrow and continue the current medication regimen. MD AMIRAH Norman/CLIFF /[id number]
--- NOTE | 2020-03-01 20:00 | NUR ---
patient resting quietly in bed; dilauded given; vital signs stable
[2020-03-02] VITALS (7 sets, daily range): BP systolic 106–142; BP diastolic 73–94
[2020-03-02] MEDS: SODIUM CHLORIDE 0.9% 1000ML 1,000 ML IV SCH ×3 (03:24→21:53)
[2020-03-02] MEDS: HYDROMORPHONE 1MG/1ML INJ IV PRN ×6 (03:46→21:01)
[2020-03-02] MEDS: ONDANSETRON HCL INJ 2MG/ML 2ML 2 MG/ML VIAL IV PRN ×4 (03:46→21:01)
[2020-03-02] MEDS: CEFTRIAXONE SOD 1 GM/NS 50 ML 50 ML IV SCH (05:03)
[2020-03-02] MEDS: DOCUSATE SODIUM 100 MG CAP PO SCH ×2 (09:00→17:43)
--- NOTE | 2020-03-02 09:19 | Diagnostic Imaging Report ---
Exam: KUB - 2 views Indication: Renal calculus Comparison: CT abdomen and pelvis of 03/01/2020 Findings: No radiographically apparent renal calculi. The previously identified 3 mm left ureterovesical junction calculus is not well evaluated on this radiograph due to the numerous superimposed subcentimeter pelvic phleboliths. Nonobstructive bowel gas pattern. No free air. Anastomotic sutures in the right lower quadrant. No acute osseous injury. Impression: No radiographically apparent renal calculi. Evaluation of the previously identified 3 mm left ureterovesical junction calculus is obscured by numerous superimposed subcentimeter pelvic phleboliths. Signed by: Roseanna Canas MD on 03/02/2020 9:16 AM
[2020-03-02] MEDS ORDERED: IOPAMIDOL 300MG/ML 50ML INFUS..BTL IV ONE (10:02)
--- NOTE | 2020-03-02 10:46 | Progress Note ---
DATE: Internal Medicine Progress Note SUBJECTIVE: The patient is still having pain on the left lower quadrant, where the kidney stone is. She is n.p.o. for possible cystoscopy today. PHYSICAL EXAMINATION: HEART: Showed regular rhythm. Normal S1 and S2 sound. LUNGS: Clear bilaterally. ABDOMEN: Soft. Got some tenderness in the left lower quadrant. VITAL SIGNS: Blood pressure 142/94, temperature 97.9, heart rate 58 per minute, respiratory rate 18 per minute, and oxygen saturation 100%. LABORATORY DATA: On the CBC; white blood count is normal at 7.09, hemoglobin 12.1, hematocrit 37.8, and platelet count 292,000. On the BMP; sodium 142, potassium 4.1, chloride 108, CO2 24, BUN 21, and creatinine 0.81, glucose 91, and calcium 9.7, coronavirus test is negative. Urinalysis showed some leukocyte and red blood cells. Urine culture still pending. FINAL IMPRESSION: 1. Left ureterovesical kidney stone with mild hydronephrosis. 2. Possible urinary tract infection. 3. Hepatic steatosis. PLAN OF TREATMENT: Continue with current medication regimen, which include Rocephin, IV fluids, Dilaudid and Zofran as needed for pain. Dr. Chawla, the urologist is going to try to do a cystoscopy today. The stone does not pass. I ordered a KUB also. will be covering for me for this weekend. We will continue current medication regimen and pain control. MD AMIRAH Norman/CLIFF /[id number]
[2020-03-02] MEDS ORDERED: EPHEDRINE SULFATE INJ 50 MG/ML VIAL ONE (13:51)
[2020-03-02] MEDS ORDERED: PROPOFOL IV EMULSION 10 MG/ML 20 ML VIAL ONE (13:51)
[2020-03-02] MEDS ORDERED: SEVOFLURANE INHAL SOLN 250 ML PEN BTL ONE (13:51)
[2020-03-02] MEDS ORDERED: ONDANSETRON HCL INJ 2MG/ML 2ML 2 MG/ML VIAL ONE (13:51)
[2020-03-02] MEDS ORDERED: LIDOCAINE HCL 2% LOCAL INJ 5 ML SDV VIAL INJ ONE (13:51)
[2020-03-02] MEDS ORDERED: DEXAMETHASONE SOD PHOS INJ 4 MG/ML VIAL ONE (13:51)
[2020-03-02] MEDS ORDERED: MIDAZOLAM HCL 2 MG/2 ML VIAL ONE (14:26)
[2020-03-02] MEDS ORDERED: FENTANYL CITRATE/PF 100MCG/2 ML INJ ONE (14:26)
[2020-03-02] MEDS: OXYBUTYNIN CHLORIDE 5 MG TAB PO SCH ×2 (14:34→21:00)
--- NOTE | 2020-03-02 18:50 | NUR ---
RECEIVED BEDSIDE SHIFT REPORT FROM PREVIOUS NURSE. CALL LIGHT WITHIN REACH. PATIENT IN BED. PATIENT IN NO PAIN OR DISTRESS.
--- NOTE | 2020-03-02 19:33 | Operative Report ---
DATE OF PROCEDURE: 03/02/2020 SURGEON: Krystian Chawla MD PREOPERATIVE DIAGNOSES: 1. Left ureteral calculus. 2. Left hydronephrosis. POSTOPERATIVE DIAGNOSES: 1. Left ureteral calculus. 2. Left hydronephrosis. PROCEDURES: 1. Left-sided ureteroscopy with laser lithotripsy (entirely separate procedure for the left ureteral calculus). 2. Left-sided ureteroscopy with stone extraction (entirely separate procedure with explicit purpose of sending stones for analysis, not required for laser lithotripsy). 3. Cystoscopy insertion of left indwelling stent (entirely separate procedure for left hydronephrosis, not required for laser lithotripsy). 4. Supervision of fluoroscopy for both stent insertion and ureteroscopic portions. 5. Interpretation of retrograde pyelography. ANESTHESIA: General. ESTIMATED BLOOD LOSS: Minimal. COMPLICATIONS: None. 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 She fail a trial passage of medical expulsive therapy. I had a long discussion about alternatives, risks, and benefits, including nothing, ureteroscopy, shockwave lithotripsy, percutaneous surgery or open surgery. She also voiced explicit understanding that the stent is a temporary indwelling device and it must be removed and failure to do so, it could lead to encrustation, infection, inflammation, atrophy, loss of the kidney, and even . She elected to proceed. PROCEDURE IN DETAIL: After informed consent was obtained, the patient was taken to the operative suite, placed on the operative table, underwent general anesthesia by the Anesthesia Service, placed in dorsal lithotomy position, sterilely prepped and draped in a standard fashion for cystoscopy. A 21[place] cystoscope was inserted per urethra. Normal urethra was noted. Panendoscopy of the bladder revealed no tumors, no stones. Both ureteral orifices were in normal anatomic location and position, no stone was seen, chronic with left ureteral orifice and guidewire was inserted in left side, pushing the stone up. The ureter was dilated. Ureteroscope was advanced to the level of stone. Utilizing a 365 micron laser fiber, the spikes were trimmed off the stone to allow easy extraction. Basket was then utilized to extract the stone passed off table as specimen with explicit purpose of sending stones for analysis. Retrograde pyelogram was performed, revealing no other stones. The safety wire was utilized to place a 7 x 28 cm ureteral stent with a coil in the renal pelvis and a coil in the bladder. The patient's bladder was drained. She was awakened from anesthesia and transported to the recovery room in excellent condition. Supervision of fluoroscopy and interpretation of retrograde pyelography: Attention was turned to the left ureteral catheterization, retrograde pyelogram was performed, revealing an initially a 3 x 3 mm distal ureteral calculus, proximal hydronephrosis. Postoperative views reveal a left ureteral stent in adequate position, interim stone removal. MD MARY Velez/MODL /[id number]
[2020-03-03] VITALS: BP 115/73
[2020-03-03] MEDS: HYDROMORPHONE 1MG/1ML INJ IV PRN (00:17)
--- NOTE | 2020-03-03 01:22 | NUR ---
CALLED DR. LY OFFICE AND TALKED TO DR. MILLER ABOUT THE PATIENT COMPLAINING OF ITCHING. DR. MILLER WAS TOLD THE PATIENT IS ON DILAUDID SO HE STOPPED THE DILAUDID. DR. MILLER ORDERED HYDROCODONE 7.5 MG Q4H PRN AND BENADRYL 25 MG PO Q6H, PRN FOR ITCHING
[2020-03-03] MEDS ORDERED: DIPHENHYDRAMINE HCL 25 MG CAP PO PRN (01:30)
[2020-03-03 04:00] VITALS: BP 111/73
[2020-03-03] MEDS: CEFTRIAXONE SOD 1 GM/NS 50 ML 50 ML IV SCH (04:30)
[2020-03-03] MEDS: HYDROCODONE/APAP 7.5MG-325MG 1 EA TAB PO PRN ×2 (05:25→10:15)
[2020-03-03] MEDS: SODIUM CHLORIDE 0.9% 1000ML 1,000 ML IV SCH (06:40)
--- NOTE | 2020-03-03 07:04 | NUR ---
GAVE BEDSIDE SHIFT REPORT TO ONCOMING NURSE. PATIENT ASLEEP IN BED. CALL LIGHT WITHIN REACH. HOURLY ROUNDING PERFORMED.
[2020-03-03 07:24] VITALS: BP 111/73
[2020-03-03 08:00] VITALS: BP 123/67
[2020-03-03 08:18] VITALS: BP 123/67
[2020-03-03] MEDS: OXYBUTYNIN CHLORIDE 5 MG TAB PO SCH (08:58)
[2020-03-03] MEDS: DOCUSATE SODIUM 100 MG CAP PO SCH (08:58)
--- NOTE | 2020-03-03 11:00 | Discharge Summary ---
ADMIT DIAGNOSES: 1. Left-sided ureteral calculus with hydronephrosis. 2. Left-sided renal colic secondary to obstructive calculus. 3. Urinary tract infection. 4. Mild obesity, BMI 32. DISCHARGE DIAGNOSES: 1. Status post left-sided ureteroscopy with laser lithotripsy. 2. Status post left-sided stone extraction with left indwelling ureteral stent placement. 3. Urinary tract infection, resolving. 4. Mild obesity, BMI 32. HOSPITAL COURSE: A 59-year-old white woman initially admitted to [facility] with diagnosis of left-sided renal colic secondary to obstructive left-sided ureteral calculus. On admission, the patient was found to have mild left-sided hydronephrosis. The patient was seen by her urologist, namely Dr. Krystian Chawla. During this hospitalization, the patient underwent left-sided ureteroscopy with laser lithotripsy and left-sided stone extraction. The patient also had a left indwelling ureteral stent placed during this procedure. The patient tolerated procedure well. The patient's brief hospitalization was unremarkable. On discharge, she is tolerating a regular diet. DISCHARGE MEDICATIONS: 1. Bactrim DS 1 p.o. b.i.d. for 10 days. 2. Tylenol No. 3 one pill every 4 hours p.r.n. pain, 30 prescribed, no refills. FOLLOWUP INSTRUCTIONS: The patient is instructed to follow up with Dr. Chawla in [address] Neo Potter in 2 weeks. The patient was told that she could return to work without restrictions on Thursday, March 12, 2020. MD PIERRE Bernard/CLIFF /[id number] cc: MD Krystian Norman MD
[2020-03-03 11:29] LABS: BASOPHILS % 0.4 % (0.0-1.0); EOSINOPHILS # (AUTO) 0.1 (0.0-0.4); EOSINOPHILS % 1.6 % (0.0-6.0); HEMATOCRIT 33.3 % (34.2-44.1); HEMOGLOBIN 10.2 g/dL (12.0-16.0); LYMPHOCYTES # (AUTO) 1.3 (1.0-3.2); LYMPHOCYTES % 23.9 % (18.0-39.1); MEAN CORPUSCULAR HEMOGLOBIN 28.2 pg (28-32); MEAN CORPUSCULAR HGB CONC 30.6 g/dL (31-35); MONOCYTES # (AUTO) 0.5 (0.2-0.8); MONOCYTES % 8.4 % (4.4-11.3); NEUTROPHILS # (AUTO) 3.7 (2.1-6.9); NEUTROPHILS % 65.3 % (38.7-80.0); PLATELET COUNT 200 x10e3/uL (140-360); RED BLOOD COUNT 3.62 x10e6/uL (3.6-5.1)
[2020-03-03] MEDS ORDERED: TYLENOL # 31 EA (11:36)
[2020-03-03] MEDS ORDERED: BACTRIM DS TAB1 EACH PO (11:37)
[2020-03-03] MEDS ORDERED: DITROPAN XL5 MG PO (11:38)
[2020-03-03] MEDS ORDERED: PYRIDIUM100 MG PO (11:38)
[2020-03-03 11:50] LABS: ALANINE AMINOTRANSFERASE 33 IU/L (0-55); ALBUMIN 3.2 g/dL (3.5-5.0); ALBUMIN/GLOBULIN RATIO 1.4 (0.8-2.0); ALKALINE PHOSPHATASE 58 IU/L (40-150); ANION GAP 7.6 mmol/L (8-16); BLOOD UREA NITROGEN 7 mg/dL (7-26); BUN/CREATININE RATIO 10 (6-25); CALCIUM 8.2 mg/dL (8.4-10.2); CARBON DIOXIDE 28 mmol/L (22-29); CHLORIDE 110 mmol/L (98-107); CREATININE, SERUM 0.69 mg/dL (0.57-1.11); EST GLOMERULAR FILTRATION RATE > 60 ML/MIN (60-); GLUCOSE 85 mg/dL (74-118); POTASSIUM 3.6 mmol/L (3.5-5.1); SODIUM 142 mmol/L (136-145)
== END 2020-03-03 13:00 | disposition home or self-care (01) | DRG 661 ==
LOC: ER 03:40 → ERHOLD 04:59 → MED/SURG 05:26 → OBSVTOIN 03-02 08:43
PROVIDERS: ADMIT Internal Medicine; ATTEND Internal Medicine
PROC: BT1F1ZZ Fluoroscopy of Left Kidney, Ureter and Bladder using Low Osmolar Contrast (ICD-10-PCS; 2020-03-02)
PROC: 0TC78ZZ Extirpation of Matter from Left Ureter, Via Natural or Artificial Opening Endoscopic (ICD-10-PCS; principal; 2020-03-02 13:30)
PROC: 0T778DZ Dilation of Left Ureter with Intraluminal Device, Via Natural or Artificial Opening Endoscopic (ICD-10-PCS; 2020-03-02 13:30)
DX: N13.6 Pyonephrosis (principal); Z85.038 Personal history of other malignant neoplasm of large intestine; N28.89 Other specified disorders of kidney and ureter; Z88.5 Allergy status to narcotic agent; I10 Essential (primary) hypertension; E66.9 Obesity, unspecified; Z68.32 Body mass index [BMI] 32.0-32.9, adult
CPT/HCPCS: 36415; 74018; 74176; 74420; 80048; 80053; 80307; 81001; 85025; 87086; 88300; 96360; 96361; 99284; C1758; C1769; C2617; G0378; J0696; J1100; J1170; J1885; J2001; J2250; J2405; J3010; J7030

== ENCOUNTER 2020-07-30 15:48 | Inpatient (IN) | payer BC, OTHER ==
[~2020-07-30] VITALS: Ht 180.3 cm; Wt 110.7 kg
[~2020-07-30 15:48] MED LIST: BACTRIM DS TAB1 EACH PO; DITROPAN XL5 MG PO; IBUPROFEN200 MG PO; OXYBUTYNIN CHLOR5 M1 PO; PYRIDIUM100 MG PO; TYLENOL # 31 EA; TYLENOL # 31 EA PO
[2020-07-30] MEDS ORDERED: SODIUM CHLORIDE 0.9% 1000ML 1,000 ML IV STA (17:31)
[2020-07-30 17:55] LABS: BASOPHILS # (AUTO) 0.1 (0.0-0.1); BASOPHILS % 0.8 % (0.0-1.0); EOSINOPHILS # (AUTO) 0.4 (0.0-0.4); EOSINOPHILS % 6.2 % (0.0-6.0); HEMATOCRIT 39.3 % (34.2-44.1); HEMOGLOBIN 12.6 g/dL (12.0-16.0); LYMPHOCYTES # (AUTO) 1.7 (1.0-3.2); LYMPHOCYTES % 27.1 % (18.0-39.1); MEAN CORPUSCULAR HGB CONC 32.1 g/dL (31-35); MEAN CORPUSCULAR VOLUME 87.3 fL (81-99); MONOCYTES # (AUTO) 0.5 (0.2-0.8); MONOCYTES % 8.3 % (4.4-11.3); NEUTROPHILS # (AUTO) 3.5 (2.1-6.9); NEUTROPHILS % 57.3 % (38.7-80.0); PLATELET COUNT 273 x10e3/uL (140-360); RED CELL DISTRIBUTION WIDTH 13.8 % (11.7-14.4)
[2020-07-30] MEDS ORDERED: MORPHINE SULFATE INJ 4 MG/ML INJ 1ML IV ONE (18:00)
[2020-07-30 18:06] LABS: ALANINE AMINOTRANSFERASE 28 IU/L (0-55); ALBUMIN/GLOBULIN RATIO 1.4 (0.8-2.0); ALKALINE PHOSPHATASE 63 IU/L (40-150); ANION GAP 13.1 mmol/L (8-16); BLOOD UREA NITROGEN 13 mg/dL (7-26); BUN/CREATININE RATIO 17 (6-25); CALCIUM 9.1 mg/dL (8.4-10.2); CARBON DIOXIDE 26 mmol/L (22-29); CHLORIDE 108 mmol/L (98-107); CREATININE, SERUM 0.75 mg/dL (0.57-1.11); EST GLOMERULAR FILTRATION RATE > 60 ML/MIN (60-); GLUCOSE 92 mg/dL (74-118); POTASSIUM 4.1 mmol/L (3.5-5.1); SODIUM 143 mmol/L (136-145)
[2020-07-30 18:14] LABS: CLARITY,URINE SL CLOUDY (CLEAR); COLOR,URINE YELLOW (YELLOW); KETONES,URINE NEGATIVE (NEGATIVE); LEUKOCYTE ESTERASE ,URINE NEGATIVE (NEGATIVE); NITRITE,URINE NEGATIVE (NEGATIVE); PROTEIN,URINE DIPSTICK NEGATIVE (NEGATIVE); URINE UROBILINOGEN 0.2 mg/dL (0.2 - 1)
[2020-07-30] MEDS ORDERED: KETOROLAC TROMETHAMINE 30 MG/ML VIAL IV STA (18:17)
[2020-07-30] MEDS ORDERED: ONDANSETRON HCL INJ 2MG/ML 2ML 2 MG/ML VIAL IV STA (18:17)
[2020-07-30 18:24] LABS: CREATINE KINASE 226 IU/L (29-168)
[2020-07-30 18:25] LABS: BACTERIA,URINE FEW /HPF; EPITHELIAL CELLS,URINE FEW /LPF; MUCUS,URINE MODERATE (RARE); TRANSITIONAL EPI CELLS,URINE FEW
[2020-07-30] MEDS ORDERED: KETOROLAC TROMETHAMINE 30 MG/ML VIAL IV PRN (22:00)
[2020-07-30 22:30] VITALS: BP 142/86
[2020-07-30] MEDS ORDERED: HYDROMORPHONE 20MG/ NS 100ML IV PRN (23:15)
[2020-07-30] MEDS: HYDROMORPHONE 2MG/ML 2 MG/ML ML IV PRN (23:35)
[2020-07-30] MEDS: ONDANSETRON HCL INJ 2MG/ML 2ML 2 MG/ML VIAL IV PRN (23:35)
[2020-07-31] VITALS (7 sets, daily range): BP systolic 94–124; BP diastolic 61–75
[2020-07-31] MEDS: HYDROMORPHONE 2MG/ML 2 MG/ML ML IV PRN ×2 (03:55→08:30)
[2020-07-31] MEDS: ONDANSETRON HCL INJ 2MG/ML 2ML 2 MG/ML VIAL IV PRN ×2 (03:55→08:29)
[2020-07-31 05:18] LABS: BASOPHILS % 0.5 % (0.0-1.0); EOSINOPHILS # (AUTO) 0.3 (0.0-0.4); EOSINOPHILS % 4.7 % (0.0-6.0); HEMATOCRIT 36.7 % (34.2-44.1); HEMOGLOBIN 11.6 g/dL (12.0-16.0); LYMPHOCYTES # (AUTO) 1.5 (1.0-3.2); LYMPHOCYTES % 24.6 % (18.0-39.1); MEAN CORPUSCULAR HEMOGLOBIN 27.9 pg (28-32); MEAN CORPUSCULAR HGB CONC 31.6 g/dL (31-35); MEAN CORPUSCULAR VOLUME 88.2 fL (81-99); MONOCYTES # (AUTO) 0.5 (0.2-0.8); MONOCYTES % 7.3 % (4.4-11.3); NEUTROPHILS # (AUTO) 3.9 (2.1-6.9); NEUTROPHILS % 62.7 % (38.7-80.0); PLATELET COUNT 238 x10e3/uL (140-360); RED BLOOD COUNT 4.16 x10e6/uL (3.6-5.1); RED CELL DISTRIBUTION WIDTH 13.8 % (11.7-14.4)
[2020-07-31 05:45] LABS: ALANINE AMINOTRANSFERASE 24 IU/L (0-55); ALBUMIN 3.7 g/dL (3.5-5.0); ALBUMIN/GLOBULIN RATIO 1.2 (0.8-2.0); ALKALINE PHOSPHATASE 55 IU/L (40-150); ANION GAP 12.1 mmol/L (8-16); BLOOD UREA NITROGEN 20 mg/dL (7-26); BUN/CREATININE RATIO 27 (6-25); CALCIUM 8.8 mg/dL (8.4-10.2); CARBON DIOXIDE 25 mmol/L (22-29); CHLORIDE 109 mmol/L (98-107); CREATININE, SERUM 0.75 mg/dL (0.57-1.11); EST GLOMERULAR FILTRATION RATE > 60 ML/MIN (60-); GLUCOSE 124 mg/dL (74-118); POTASSIUM 4.1 mmol/L (3.5-5.1); SODIUM 142 mmol/L (136-145)
[2020-07-31] MEDS ORDERED: ACETAMINOPHEN 325 MG TAB PO PRN (09:00)
[2020-07-31] MEDS ORDERED: PROMETHAZINE 12.5MG/ NACL 0.9% 12.5 MG/50 ML BAG IV PRN (09:30)
[2020-07-31] MEDS ORDERED: GADOBENATE DIMEGLUMINE 1 ML IV ONE (09:55)
[2020-07-31] MEDS ORDERED: SODIUM CHLORIDE 0.9% 50ML 50 ML ONE (10:06)
[2020-07-31] MEDS: PROMETHAZINE 12.5MG/ NACL 0.9% 12.5 MG/50 ML BAG IV PRN ×2 (10:26→16:43)
[2020-07-31] MEDS: MORPHINE SULFATE INJ 2 MG/ML SYR IV PRN ×3 (12:15→22:38)
[2020-07-31] MEDS: DEXTROSE 5%/0.9% SOD CHL 1,000 ML IV SCH (12:36)
[2020-08-01] VITALS (8 sets, daily range): BP systolic 107–140; BP diastolic 70–80
[2020-08-01] MEDS: DEXTROSE 5%/0.9% SOD CHL 1,000 ML IV SCH ×3 (00:15→21:15)
[2020-08-01] MEDS ORDERED: DONNATAL/LIDOCAINE/MAALOX 30 ML SUSP PO ONE (00:15)
[2020-08-01] MEDS ORDERED: BELLADONNA ALK/PHENOBARBITAL 5 ML UDC PO ONE (00:30)
[2020-08-01] MEDS ORDERED: MAGNESIUM/ALUMINUM/SIMETHICONE 30 ML UDC PO ONE (00:30)
[2020-08-01] MEDS ORDERED: LIDOCAINE VISC 2% SOLN 15 ML UDC PO ONE (00:30)
[2020-08-01] MEDS: MORPHINE SULFATE INJ 2 MG/ML SYR IV PRN ×5 (05:26→22:04)
[2020-08-01] MEDS: DOCUSATE SODIUM 100 MG CAP PO PRN (21:15)
[2020-08-01] MEDS: PROMETHAZINE 12.5MG/ NACL 0.9% 12.5 MG/50 ML BAG IV PRN (22:04)
[2020-08-02] VITALS (8 sets, daily range): BP systolic 118–128; BP diastolic 71–85
[2020-08-02] MEDS: DOCUSATE SODIUM 100 MG CAP PO PRN ×2 (05:29→16:10)
[2020-08-02] MEDS: MORPHINE SULFATE INJ 2 MG/ML SYR IV PRN ×4 (05:29→20:45)
[2020-08-02] MEDS: DEXTROSE 5%/0.9% SOD CHL 1,000 ML IV SCH ×2 (08:59→20:45)
[2020-08-02] MEDS ORDERED: CITRATE OF MAGNESIA 300ML BOTTLE PO ONE (09:00)
[2020-08-02] MEDS: PROMETHAZINE 12.5MG/ NACL 0.9% 12.5 MG/50 ML BAG IV PRN ×3 (10:15→20:50)
[2020-08-03] VITALS (8 sets, daily range): BP systolic 112–132; BP diastolic 64–82
[2020-08-03] MEDS: MORPHINE SULFATE INJ 2 MG/ML SYR IV PRN ×4 (03:26→21:26)
[2020-08-03 05:54] LABS: BASOPHILS % 0.6 % (0.0-1.0); EOSINOPHILS # (AUTO) 0.3 (0.0-0.4); EOSINOPHILS % 5.6 % (0.0-6.0); HEMATOCRIT 36.5 % (34.2-44.1); HEMOGLOBIN 11.7 g/dL (12.0-16.0); LYMPHOCYTES # (AUTO) 1.5 (1.0-3.2); LYMPHOCYTES % 32.3 % (18.0-39.1); MEAN CORPUSCULAR HEMOGLOBIN 28.7 pg (28-32); MEAN CORPUSCULAR HGB CONC 32.1 g/dL (31-35); MEAN CORPUSCULAR VOLUME 89.7 fL (81-99); MONOCYTES # (AUTO) 0.4 (0.2-0.8); MONOCYTES % 9.4 % (4.4-11.3); NEUTROPHILS # (AUTO) 2.4 (2.1-6.9); NEUTROPHILS % 51.7 % (38.7-80.0); PLATELET COUNT 219 x10e3/uL (140-360); RED BLOOD COUNT 4.07 x10e6/uL (3.6-5.1); RED CELL DISTRIBUTION WIDTH 13.1 % (11.7-14.4)
[2020-08-03 06:09] LABS: BLOOD UREA NITROGEN 9 mg/dL (7-26); BUN/CREATININE RATIO 13 (6-25); CALCIUM 8.2 mg/dL (8.4-10.2); CARBON DIOXIDE 27 mmol/L (22-29); CHLORIDE 108 mmol/L (98-107); CREATININE, SERUM 0.67 mg/dL (0.57-1.11); EST GLOMERULAR FILTRATION RATE > 60 ML/MIN (60-); GLUCOSE 94 mg/dL (74-118); SODIUM 143 mmol/L (136-145)
[2020-08-03] MEDS: DEXTROSE 5%/0.9% SOD CHL 1,000 ML IV SCH (09:15)
[2020-08-03] MEDS ORDERED: MIDAZOLAM HCL 2 MG/2 ML VIAL ONE (12:00)
[2020-08-03] MEDS ORDERED: FENTANYL CITRATE/PF 100MCG/2 ML INJ ONE (12:00)
[2020-08-03] MEDS ORDERED: PROPOFOL IV EMULSION 10 MG/ML 20 ML VIAL ONE (13:06)
[2020-08-03] MEDS ORDERED: LIDOCAINE HCL 2% LOCAL INJ 5 ML SDV VIAL INJ ONE (13:06)
[2020-08-03] MEDS ORDERED: ROCURONIUM BROMIDE 10 MG/ML 5ML VIAL IV ONE (13:06)
[2020-08-03] MEDS ORDERED: KETOROLAC TROMETHAMINE 30 MG/ML VIAL ONE (13:06)
[2020-08-03] MEDS ORDERED: PHENYLEPHRINE HCL 1% 10 MG/ML VIAL ONE (13:06)
[2020-08-03] MEDS ORDERED: CEFAZOLIN SOD 1 GM VIAL ONE (13:06)
[2020-08-03] MEDS ORDERED: ONDANSETRON HCL INJ 2MG/ML 2ML 2 MG/ML VIAL ONE ×2 (13:06→17:31)
[2020-08-03] MEDS ORDERED: GLYCOPYRROLATE INJ 0.2 MG/ML VIAL ONE (13:06)
[2020-08-03] MEDS ORDERED: DEXAMETHASONE SOD PHOS INJ 4 MG/ML VIAL ONE (13:06)
[2020-08-03] MEDS ORDERED: NEOSTIGMINE 1 MG/ML 10ML VIAL ONE (13:06)
[2020-08-03] MEDS ORDERED: SEVOFLURANE INHAL SOLN 250 ML PEN BTL ONE (13:06)
[2020-08-03] MEDS ORDERED: BUPIVACAINE 0.25% 30ML SDV ONE (14:06)
[2020-08-03] MEDS ORDERED: ALBUTEROL/IPRATROPIUM 3 ML NEB ONE (17:27)
[2020-08-03] MEDS ORDERED: HYDROCODONE/APAP 7.5MG-325MG 1 EA TAB PO PRN (17:30)
[2020-08-03] MEDS ORDERED: METOCLOPRAMIDE HCL 10 MG/2ML VIAL ONE (17:31)
[2020-08-03] MEDS ORDERED: ACETAMINOPHEN 1000 MG/100 ML 100 ML IV ONE (17:38)
[2020-08-03] MEDS ORDERED: PROMETHAZINE HCL (IM) 25 MG/ML VIAL IM ONE (17:45)
[2020-08-03] MEDS: PROMETHAZINE 12.5MG/ NACL 0.9% 12.5 MG/50 ML BAG IV PRN (18:31)
[2020-08-04] MEDS: MORPHINE SULFATE INJ 2 MG/ML SYR IV PRN ×2 (03:08→08:18)
[2020-08-04] MEDS: DEXTROSE 5%/0.9% SOD CHL 1,000 ML IV SCH (03:44)
[2020-08-04 03:56] VITALS: BP 123/72
[2020-08-04 06:26] LABS: BASOPHILS % 0.2 % (0.0-1.0); HEMATOCRIT 37.9 % (34.2-44.1); HEMOGLOBIN 12.3 g/dL (12.0-16.0); LYMPHOCYTES # (AUTO) 0.8 (1.0-3.2); LYMPHOCYTES % 7.2 % (18.0-39.1); MEAN CORPUSCULAR HEMOGLOBIN 28.5 pg (28-32); MEAN CORPUSCULAR HGB CONC 32.5 g/dL (31-35); MEAN CORPUSCULAR VOLUME 87.9 fL (81-99); MONOCYTES # (AUTO) 0.5 (0.2-0.8); MONOCYTES % 4.2 % (4.4-11.3); NEUTROPHILS # (AUTO) 9.6 (2.1-6.9); NEUTROPHILS % 87.9 % (38.7-80.0); PLATELET COUNT 248 x10e3/uL (140-360); RED BLOOD COUNT 4.31 x10e6/uL (3.6-5.1)
[2020-08-04 06:44] LABS: ANION GAP 13.5 mmol/L (8-16); BLOOD UREA NITROGEN 9 mg/dL (7-26); BUN/CREATININE RATIO 13 (6-25); CALCIUM 8.6 mg/dL (8.4-10.2); CARBON DIOXIDE 23 mmol/L (22-29); CHLORIDE 106 mmol/L (98-107); CREATININE, SERUM 0.71 mg/dL (0.57-1.11); EST GLOMERULAR FILTRATION RATE > 60 ML/MIN (60-); GLUCOSE 126 mg/dL (74-118); POTASSIUM 4.5 mmol/L (3.5-5.1); SODIUM 138 mmol/L (136-145)
[2020-08-04 07:46] VITALS: BP 118/88
[2020-08-04 07:47] VITALS: BP 118/88
[2020-08-04 12:06] VITALS: BP 114/68
[2020-08-04] MEDS ORDERED: LEVOFLOXACIN250 MG PO (13:35)
[2020-08-04] MEDS ORDERED: TYLENOL # 31 EA PO (13:36)
== END 2020-08-04 13:50 | disposition home or self-care (01) | DRG 419 ==
LOC: ER 16:49 → ERHOLD 19:58 → MED/SURG 22:13 → OBSVTOIN 08-01 08:09
PROVIDERS: ADMIT Internal Medicine; ATTEND Internal Medicine
PROC: 0FT44ZZ Resection of Gallbladder, Percutaneous Endoscopic Approach (ICD-10-PCS; principal; 2020-08-01)
DX: K80.20 Calculus of gallbladder without cholecystitis without obstruction (principal); E66.9 Obesity, unspecified; Z68.34 Body mass index [BMI] 34.0-34.9, adult; Z90.3 Acquired absence of stomach [part of]; D64.9 Anemia, unspecified; K43.9 Ventral hernia without obstruction or gangrene; Z87.442 Personal history of urinary calculi; Z20.822 Contact with and (suspected) exposure to COVID-19
CPT/HCPCS: 36415; 72158; 74176; 76705; 80048; 80053; 81001; 82550; 82553; 84484; 85025; 88304; 99284; C1766; G0378; J0690; J1100; J1885; J2001; J2250; J2270; J2370; J2405; J2550; J2710; J2765; J3010; J7030; J7042; U0002

== ENCOUNTER → 2021-01-14 | Outpatient (CLI) | payer OTHER ==
[~2021-01-14] MED LIST changes: +LEVOFLOXACIN250 MG PO
== END ==
LOC: VACCPMC 14:00
DX: Z23 Encounter for immunization (principal); Z20.822 Contact with and (suspected) exposure to COVID-19

== ENCOUNTER → 2021-02-11 | Outpatient (CLI) | payer OTHER | LOC: VACCPMC 14:38 | DX: Z23 Encounter for immunization (principal); Z20.822 Contact with and (suspected) exposure to COVID-19 ==

== ENCOUNTER 2021-03-02 18:54 | Emergency (ER) | payer OTHER ==
[~2021-03-02] VITALS: Ht 180.3 cm; Wt 110.7 kg
[2021-03-02] MEDS ORDERED: MORPHINE SULFATE INJ 2 MG/ML SYR IV STA (19:28)
[2021-03-02] MEDS ORDERED: ONDANSETRON HCL INJ 2MG/ML 2ML 2 MG/ML VIAL IV STA (19:28)
[2021-03-02] MEDS ORDERED: MORPHINE SULFATE INJ 4 MG/ML INJ 1ML ONE (19:45)
[2021-03-02] MEDS ORDERED: SODIUM CHLORIDE 0.9% 1000ML 1,000 ML ONE (19:46)
[2021-03-02] MEDS ORDERED: ONDANSETRON HCL INJ 2MG/ML 2ML 2 MG/ML VIAL ONE (19:46)
[2021-03-02] MEDS ORDERED: MORPHINE SULFATE INJ 2 MG/ML SYR ONE (19:46)
[2021-03-02 20:03] LABS: BASOPHILS # (AUTO) 0.1 (0.0-0.1); EOSINOPHILS # (AUTO) 0.2 (0.0-0.4); EOSINOPHILS % 4.1 % (0.0-6.0); HEMATOCRIT 41.3 % (34.2-44.1); HEMOGLOBIN 12.8 g/dL (12.0-16.0); LYMPHOCYTES # (AUTO) 2.1 (1.0-3.2); LYMPHOCYTES % 35.3 % (18.0-39.1); MEAN CORPUSCULAR HEMOGLOBIN 28.6 pg (28-32); MEAN CORPUSCULAR VOLUME 92.2 fL (81-99); MONOCYTES # (AUTO) 0.6 (0.2-0.8); MONOCYTES % 9.8 % (4.4-11.3); NEUTROPHILS # (AUTO) 2.9 (2.1-6.9); NEUTROPHILS % 49.5 % (38.7-80.0); PLATELET COUNT 313 x10e3/uL (140-360); RED BLOOD COUNT 4.48 x10e6/uL (3.6-5.1); RED CELL DISTRIBUTION WIDTH 13.6 % (11.7-14.4)
[2021-03-02 20:22] LABS: ALBUMIN 4.4 g/dL (3.5-5.0); ALBUMIN/GLOBULIN RATIO 1.4 (0.8-2.0); ANION GAP 15.6 mmol/L (8-16); CALCIUM 9.3 mg/dL (8.4-10.2); CREATININE, SERUM 0.92 mg/dL (0.57-1.11); POTASSIUM 3.6 mmol/L (3.5-5.1)
[2021-03-02 20:26] LABS: CLARITY,URINE CLEAR (CLEAR); COLOR,URINE YELLOW (YELLOW); KETONES,URINE NEGATIVE (NEGATIVE); LEUKOCYTE ESTERASE ,URINE NEGATIVE (NEGATIVE); NITRITE,URINE NEGATIVE (NEGATIVE); PROTEIN,URINE DIPSTICK NEGATIVE (NEGATIVE); URINE UROBILINOGEN 0.2 mg/dL (0.2 - 1)
[2021-03-02 20:31] LABS: BACTERIA,URINE FEW /HPF; EPITHELIAL CELLS,URINE MODERATE /LPF; MUCUS,URINE MODERATE (RARE); WBC,URINE (MAN) 0-5 /HPF (0-5)
[2021-03-02 22:06] VITALS: BP 148/86
== END 2021-03-02 22:15 | disposition home or self-care (01) ==
LOC: ER 19:23
DX: M54.50 Low back pain, unspecified (principal); R10.9 Unspecified abdominal pain; Z85.89 Personal history of malignant neoplasm of other organs and systems; Z87.442 Personal history of urinary calculi
CPT/HCPCS: 36415; 74176; 80053; 81001; 83690; 85025; 99284; J2270 ×2; J2405; J7030

== ENCOUNTER → 2021-08-14 | Outpatient (CLI) | payer BC | LOC: MAMMO 09:56 | PROVIDERS: ATTEND Internal Medicine | DX: Z12.31 Encounter for screening mammogram for malignant neoplasm of breast (principal); R10.11 Right upper quadrant pain; R74.8 Abnormal levels of other serum enzymes; M54.16 Radiculopathy, lumbar region | CPT/HCPCS: 72148; 76705; 77067 ==

== ENCOUNTER → 2021-09-24 | Day surgery (SDC) | payer BC ==
[~2021-09-24] MED LIST changes: +FENTANYL CITRATE/PF 100MCG/2 ML INJ ONE; +GLUCAGON FOR INJ 1 MG VIAL ONE; +HYOSCYAMINE SULFATE 0.5 MG/ML INJ ONE; +IBUPROFEN400 MG PO; +MIDAZOLAM HCL 2 MG/2 ML VIAL ONE; +PROPOFOL IV EMULSION 10 MG/ML 20 ML VIAL ONE; +SKELAXIN800 MG PO
[2021-09-24 17:30] VITALS: BP 127/88
== END | disposition home or self-care (01) ==
LOC: OR 13:56
PROVIDERS: ATTEND Internal Medicine Gastroenterology
DX: Z12.11 Encounter for screening for malignant neoplasm of colon (principal); K63.5 Polyp of colon; K62.1 Rectal polyp; K29.50 Unspecified chronic gastritis without bleeding; K31.A19 Gastric intestinal metaplasia without dysplasia, unspecified site; Q85.8 Other phakomatoses, not elsewhere classified; I85.00 Esophageal varices without bleeding; K44.9 Diaphragmatic hernia without obstruction or gangrene; K31.89 Other diseases of stomach and duodenum; K20.90 Esophagitis, unspecified without bleeding; K22.89 Other specified disease of esophagus; K59.00 Constipation, unspecified; K57.30 Diverticulosis of large intestine without perforation or abscess without bleeding; K64.8 Other hemorrhoids; Z85.038 Personal history of other malignant neoplasm of large intestine; Z98.0 Intestinal bypass and anastomosis status; Z98.84 Bariatric surgery status; Z86.012 Personal history of benign carcinoid tumor; Z71.3 Dietary counseling and surveillance; E66.9 Obesity, unspecified; Z01.810 Encounter for preprocedural cardiovascular examination; Z01.812 Encounter for preprocedural laboratory examination; Z20.822 Contact with and (suspected) exposure to COVID-19; Z68.34 Body mass index [BMI] 34.0-34.9, adult; Z80.0 Family history of malignant neoplasm of digestive organs
CPT/HCPCS: 43239; 45380; 45385; 93005; C9113; J1610; J1980; J2250; J2704; J3010; U0002; 45378